=== PATIENT | male | born 1965 | race American Indian/Alaskan Native ===

== ENCOUNTER 2019-02-06 18:45 | Inpatient (IN) | payer OTHER ==
[~2019-02-06] VITALS: Ht 170.2 cm; Wt 70.3 kg
[2019-02-12] MEDS ORDERED: THIAMINE HCL100 MG PO (18:27)
[2019-02-12] MEDS ORDERED: FOLIC ACID1 MG PO (18:27)
[2019-02-12] MEDS ORDERED: INFUVITE ADULT10 ML PO (18:27)
== END 2019-02-13 08:47 | disposition home or self-care (01) | DRG 101 ==
LOC: ER 18:45 → MEDJ 02-07 12:39
PROVIDERS: ADMIT Internal Medicine
DX: G40.89 Other seizures (principal); N39.0 Urinary tract infection, site not specified; M62.82 Rhabdomyolysis; E86.0 Dehydration; D69.49 Other primary thrombocytopenia; F10.10 Alcohol abuse, uncomplicated; Z59.0 Homelessness; Z60.8 Other problems related to social environment; Z72.0 Tobacco use

== ENCOUNTER 2020-11-04 12:53 | Emergency (ER) | payer OTHER ==
[~2020-11-04] VITALS: Ht 177.8 cm; Wt 68.0 kg
[~2020-11-04 12:53] MED LIST: FOLIC ACID1 MG PO; INFUVITE ADULT10 ML PO; THIAMINE HCL100 MG PO
== END 2020-11-04 16:18 | disposition home or self-care (01) ==
LOC: ER 12:53
DX: G40.89 Other seizures (principal)